=== PATIENT | female | born 1995 | race Caucasian/White ===

== ENCOUNTER 2018-04-26 11:04 | Emergency (ER) | payer OTHER ==
[~2018-04-26] VITALS: Ht 160 cm; Wt 49.9 kg
--- NOTE | 2018-04-26 11:10 | NUR ---
BIB [facility], PT WAS FOUND IN FRONT OF STORE, AMS, ACTING WEIRD, REFUSED MEDICAL CARE FROM [facility]. AOX1, NAD NOTED, VSS, RESP EVEN AND UNLABORED PT WAS PUT ON MONITOR. WAITING FOR MD HUERTAS.
--- NOTE | 2018-04-26 12:20 | NUR ---
kaveh ditching machine operating engineer at bedside for eval.
--- NOTE | 2018-04-26 12:41 | NUR ---
pt refusing blood draw.
--- NOTE | 2018-04-26 13:12 | NUR ---
iv line started blood drawn and sent to lab.
[2018-04-26 13:22] LABS: BASOPHILS % (AUTO) 0.8 % (0.0-2.0); EOSINOPHILS % (AUTO) 2.2 % (0.0-6.0); HEMATOCRIT 38 % (33-45); HEMOGLOBIN 12.7 g/dL (11.5-14.8); LYMPHOCYTES % (AUTO) 24.4 % (20.0-44.0); MEAN CORPUSCULAR HEMOGLOBIN 32 PG (26.0-33.0); MEAN CORPUSCULAR HGB CONC 33 g/dl (31.0-36.0); MEAN CORPUSCULAR VOLUME 95 fL (82-100); MONOCYTES # (AUTO) 0.4 /CMM (0.1-1.30); MONOCYTES % (AUTO) 10.2 % (2.0-12.0); NEUTROPHILS # (AUTO) 2.6 /CMM (1.8-8.9); NEUTROPHILS % (AUTO) 62.4 % (43.0-81.0); PLATELET COUNT (AUTO) 241 /CMM (150-450); RDW COEFFICIENT OF VARIATION 12.8 (11.5-15.0); WHITE BLOOD COUNT (AUTO) 4.2 K/uL (4.3-11.0)
[2018-04-26 13:23] LABS: APPEARANCE,URINE CLOUDY (CLEAR); BILIRUBIN,URINE NEGATIVE (NEGATIVE); BLOOD, URINE TRACE-INTA Ery/uL (NEGATIVE); COLOR,URINE YELLOW (YELLOW); KETONES,URINE NEGATIVE (NEGATIVE); LEUKOCYTE ESTERASE ,URINE 1+ (NEGATIVE); NITRITE, URINE NEGATIVE (NEGATIVE); PROTEIN,URINE 1+ mg/dl (NEGATIVE); UGLUCOSE NEGATIVE (NEGATIVE); UROBILINOGEN,URINE 0.2 EU/dL (0.2)
[2018-04-26] MEDS ORDERED: IV NS 0.9% 1,000 ML BAG IV ONE (13:30)
[2018-04-26 13:36] LABS: ALANINE AMINOTRANSFERASE 17 U/L (12-78); ALBUMIN 3.6 g/dL (3.4-5.0); ALKALINE PHOSPHATASE 62 U/L (46-116); ASPARTATE AMINOTRANSFERASE 8 U/L (15-37); BILIRUBIN,TOTAL 0.2 mg/dL (0.2-1.0); CALCIUM, SERUM 8.8 mg/dL (8.5-10.1); CARBON DIOXIDE 28 mmol/L (21-32); CHLORIDE 106 mmol/L (98-107); CREATININE 0.8 mg/dL (0.6-1.3); GLUCOSE 83 mg/dL (74-106); POTASSIUM 4.3 mmol/L (3.5-5.1); SODIUM SERUM 141 mmol/L (136-145); TOTAL PROTEIN, SERUM 7.1 g/dL (6.4-8.2); UREA NITROGEN, BLOOD 16 mg/dL (7-18)
[2018-04-26 13:40] LABS: ACETAMINOPHEN 0 ug/ml (10-30); ALCOHOL, BLOOD < 3 mg/dL (0-0); SALICYLATE 2.1 mg/dL (2.8-20.0)
[2018-04-26 13:47] LABS: BACTERIA,URINE 1+ /HPF (None Seen); MUCUS,URINE Moderate /LPF (None Seen); WBC,URINE 21-50 /HPF (0-3)
[2018-04-26 13:48] LABS: URINE AMORPHOUS URATE Few /HPF (None Seen)
[2018-04-26] MEDS ORDERED: CEFTRIAXONE 1GM BAG (ER ONLY) 1 GM/50 ML PIGGYBACK IV ONE (14:30)
--- NOTE | 2018-04-26 15:58 | NUR ---
pt given homeless refferals. d/c home in stable condition. IV removed. Catheter intact and site benign. Pressure and 4x4 applied to site. No bleeding noted.
[2018-04-26 15:59] VITALS: BP 108/62
== END 2018-04-26 16:01 | disposition home or self-care (01) ==
LOC: ER 11:07
DX: F19.10 Other psychoactive substance abuse, uncomplicated (principal); N39.0 Urinary tract infection, site not specified; Z59.0 Homelessness
CPT/HCPCS: 36415; 80048; 80076; 80305; 80329; 81001; 84703; 85025; 87077; 87086; 87106; 96365; 99285; A4606; G0480 ×2; J0696; J7030; Z7610; 81000-TC

== ENCOUNTER 2019-03-16 13:32 | Emergency (ER) | payer MEDICAID, OTHER ==
[~2019-03-16] VITALS: Ht 162.6 cm; Wt 56.7 kg
--- NOTE | 2019-03-16 13:32 | NUR ---
BIB [facility] AND [employer],CALLED IN ALTERED BUT A/O X 4 AND SEATED UPON ARRIVAL,ADMITTED USING HEROIN AND REQUESTED PLACEMENT SINCE SHE IS HOMELESS.
--- NOTE | 2019-03-16 13:47 | NUR ---
CALLED [facility]; THE PATIENT REQUESTS TO BE PLACED IN A HOMELESS SKILLED NURSING
--- NOTE | 2019-03-16 13:47 | NUR ---
NO ACUTE DISTRESS, SHE IS ALERT AND AWAKE X 4
--- NOTE | 2019-03-16 13:49 | NUR ---
DEANNE ROSA AT BEDSIDE FOR EVAL/PLACEMENT
--- NOTE | 2019-03-16 13:50 | NUR ---
ASSUMED CARE OF PT.
--- NOTE | 2019-03-16 13:59 | NUR ---
PER MOE ALICEA, PT HAS PLACEMENT IN A FACILITY AND WILL BE ABLE TO GO WITHIN THE NEXT 30 MINS.
--- NOTE | 2019-03-16 13:59 | NUR ---
PT REC'D A LUNCH TRAY AND IS TOLERATING PO WELL.
[2019-03-16 14:17] VITALS: BP 122/65
--- NOTE | 2019-03-16 14:17 | NUR ---
Social service consult requested by Dr. Menezes for homelessness. Pt. is a 23 year old female who came to [facility] on an overdose. SW met with pt. bedside. Pt. is alert and oriented x 4. Pt. appears disheveled. Pt's mood is congruent. Pt. states she has been homeless for about a year. Prior to being homeless, pt. was residing with her mother in [place]. Pt. stated she is very tired and wants to sleep. Pt. informed SW she would like fpc placement. SW contacted [facility] and spoke with Leonor in women's who informed SW they do have a bed available and to send pt. to the fpc located at [address] [place] [address], [place] Pt. is an heroin user and last used this morning. Pt. has been using drugs for the past eight years. Pt. has been to [facility] a couple of years ago. Pt. denies alcohol use but does smoke 2 to 3 cigarettes per day. 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 Pt. to be discharged to [address] [place] [address], [place] Pt. was provided with TAP card and bus directions to the fpc. Pt. was offered lunch but declined. Homeless Patient Waiver Form was signed by the pt. and placed in pt's chart. SW updated Dr. Clif Hernandes and BEKA Jorge regarding pt's discharge plan. Pt. was also given the following resources: [address] [place] [address] ; [facility], [address] [place] [address], [place] ; [facility] Homeless Resource Directory which includes food stamps, transitional housing, showers and hot meals etc; Mental Health clinics such as [facility] ; [facility] ; Health clinics;[facility] and Alcohol treatment centers such as [facility], ; [facility] Substance Abuse Hotline and [facility] .
--- NOTE | 2019-03-16 14:17 | NUR ---
PT REC'D A TAP CARD ALONG WITH DIRECTIONS BY BUS TO [facility] [place]. PT AMBULATED OUT WITH A STEADY GAIT. VSS. JENS NOTED. AIDAN ALICEAW, WALKED THE PT OUT TO THE LOBBY.
== END 2019-03-16 14:19 | disposition home or self-care (01) ==
LOC: ER 13:37
DX: F11.10 Opioid abuse, uncomplicated (principal); Z60.2 Problems related to living alone; Z59.0 Homelessness

== ENCOUNTER 2019-03-16 14:57 | Emergency (ER) | payer MEDICAID, OTHER ==
[~2019-03-16] VITALS: Ht 160 cm; Wt 56.7 kg
[2019-03-16 15:05] VITALS: BP 120/73
== END 2019-03-16 15:41 | disposition home or self-care (01) ==
LOC: ER 14:59
DX: F11.10 Opioid abuse, uncomplicated (principal); Z60.2 Problems related to living alone